=== PATIENT | female | born 1940 | race Caucasian/White ===

== ENCOUNTER → 2017-06-25 | Outpatient (CLI) | payer MEDICARE, BC | END | disposition home or self-care (01) | LOC: PCVCCLINIC 12:12 | DX: I25.10 Atherosclerotic heart disease of native coronary artery without angina pectoris (principal); I10 Essential (primary) hypertension; E78.00 Pure hypercholesterolemia, unspecified; I51.81 Takotsubo syndrome; I35.1 Nonrheumatic aortic (valve) insufficiency; Z79.899 Other long term (current) drug therapy; Z79.82 Long term (current) use of aspirin | CPT/HCPCS: 80061; 93005; G0463 ==

== ENCOUNTER → 2017-06-29 | Outpatient (CLI) | payer MEDICARE, BC | END | disposition home or self-care (01) | LOC: PCVCIMAG 07:47 | DX: I08.3 Combined rheumatic disorders of mitral, aortic and tricuspid valves (principal); I10 Essential (primary) hypertension; I25.10 Atherosclerotic heart disease of native coronary artery without angina pectoris | CPT/HCPCS: 76770; 93306; 93975 ==

== ENCOUNTER → 2017-08-19 | Outpatient (CLI) | payer MEDICARE, BC ==
[~2017-08-19] MED LIST: ACETAMINOPHEN 500 MG TABLET PO; DIAZEPAM 10 MG TABLET.; IOHEXOL 350 MG/ML 100 ML VIAL.; IOHEXOL 350 MG/ML 50 ML VIAL.; IV NORMAL SALINE 500ML BAG 500 ML; LIDOCAINE 1% Multi-Dose 50 ML VIAL.
== END | disposition home or self-care (01) ==
LOC: PCVCINTER 12:13
DX: I71.4 Abdominal aortic aneurysm, without rupture (principal); I73.9 Peripheral vascular disease, unspecified; I11.0 Hypertensive heart disease with heart failure; I50.9 Heart failure, unspecified; I25.10 Atherosclerotic heart disease of native coronary artery without angina pectoris
CPT/HCPCS: 76700; 93458; J1644; J7040; Q9967

== ENCOUNTER → 2017-10-21 | Outpatient (CLI) | payer MEDICARE, BC | END | disposition home or self-care (01) | LOC: PCVCCLINIC 12:40 | DX: I10 Essential (primary) hypertension (principal); I95.1 Orthostatic hypotension; I71.4 Abdominal aortic aneurysm, without rupture; I35.1 Nonrheumatic aortic (valve) insufficiency; I51.81 Takotsubo syndrome; Z79.82 Long term (current) use of aspirin | CPT/HCPCS: 93005; G0463 ==

== ENCOUNTER → 2017-11-20 | Outpatient (CLI) | payer MEDICARE, BC | END | disposition home or self-care (01) | LOC: PCVCCLINIC 11:04 | PROVIDERS: ATTEND Internal Medicine Cardiovascular Disease | DX: I25.10 Atherosclerotic heart disease of native coronary artery without angina pectoris (principal); I71.4 Abdominal aortic aneurysm, without rupture; I10 Essential (primary) hypertension; E78.00 Pure hypercholesterolemia, unspecified; R23.2 Flushing; R53.83 Other fatigue; R94.31 Abnormal electrocardiogram [ECG] [EKG]; Z88.8 Allergy status to other drugs, medicaments and biological substances; Z79.82 Long term (current) use of aspirin; Z79.899 Other long term (current) drug therapy | CPT/HCPCS: 93005; G0463 ==

== ENCOUNTER → 2018-03-04 | Outpatient (CLI) | payer MEDICARE, BC | END | disposition home or self-care (01) | LOC: PCVCCLINIC 13:09 | PROVIDERS: ATTEND Internal Medicine Cardiovascular Disease | DX: I25.10 Atherosclerotic heart disease of native coronary artery without angina pectoris (principal); E78.00 Pure hypercholesterolemia, unspecified; R94.31 Abnormal electrocardiogram [ECG] [EKG]; I10 Essential (primary) hypertension; I35.1 Nonrheumatic aortic (valve) insufficiency; I71.4 Abdominal aortic aneurysm, without rupture; M19.90 Unspecified osteoarthritis, unspecified site; Z72.89 Other problems related to lifestyle; Z88.8 Allergy status to other drugs, medicaments and biological substances; Z79.899 Other long term (current) drug therapy | CPT/HCPCS: 36415; 80061; 93005; G0463 ==

== ENCOUNTER → 2018-08-12 | Outpatient (CLI) | payer MEDICARE, BC | END | disposition home or self-care (01) | LOC: PCVCCLINIC 15:00 | PROVIDERS: ATTEND Internal Medicine Cardiovascular Disease | DX: I10 Essential (primary) hypertension (principal); Z88.0 Allergy status to penicillin | CPT/HCPCS: 36415 ==